=== PATIENT | male | born 1970 | race Caucasian/White ===

== ENCOUNTER 2019-04-21 18:10 | Emergency (ER) | payer BC ==
[2019-04-21] MEDS ORDERED: Acetaminophen/HYDROcodone 325-10 MG Tab PO ONE (18:11)
[2019-04-21] MEDS ORDERED: fentaNYL 100 MCG/2 ML SDV IVPUSH ONE ×2 (20:05→22:17)
[2019-04-21] MEDS ORDERED: Ondansetron 4 MG/2 ML SDV IV ONE (20:05)
[2019-04-21] MEDS ORDERED: Sodium Chloride 0.9% 1,000 ML IV ONE (20:06)
[2019-04-21] MEDS ORDERED: Iopamidol 612 MG/ML 100 ML Bottle IVPUSH ONE (20:18)
--- NOTE | 2019-04-21 20:23 | EDM.PDOC ---
ED HPI GENERAL MEDICAL PROBLEM - General Chief Complaint: Abdominal Pain Stated Complaint: DIATICILITUS? Time Seen by Provider: 04/21/19 20:21 Source of Information: Reports: Patient History Limitations: Reports: No Limitations - History of Present Illness INITIAL COMMENTS - FREE TEXT/NARRATIVE: onset of pain yesterday which was across lower abd, then today LLQ region, no diarrhoea, no N/V. 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 Lower Abdominal Pain Score (Numeric/FACES): 4 - Related Data Allergies Allergy/AdvReac Type Severity Reaction Status Date / Time pantoprazole [From Protonix] Allergy Cannot Verified 04/21/19 18:59 Remember Home Meds: Home Meds Sertraline HCl 50 mg PO DAILY 03/14/15 [History] Past Medical History Gastrointestinal History: Reports: Diverticulosis Musculoskeletal History: Reports: Fracture Psychiatric History: Reports: Other (See Below) Other Psychiatric History: SAD - Past Surgical History HEENT Surgical History: Reports: Tonsillectomy GI Surgical History: Reports: Appendectomy, Cholecystectomy Musculoskeletal Surgical History: Reports: Other (See Below) Social & Family History - Tobacco Use Smoking Status *Q: Current Every Day Smoker Years of Tobacco use: 30 Packs/Tins Daily: 1 - Caffeine Use Caffeine Use: Reports: Coffee, Soda - Recreational Drug Use Recreational Drug Use: No ED ROS GENERAL - Review of Systems Review Of Systems: ROS reveals no pertinent complaints other than HPI. ED EXAM, GI/ABD - Physical Exam Exam: See Below Exam Limited By: No Limitations General Appearance: Alert, WD/WN, Mild Distress, Moderate Distress, Other (pain) . No: Active Emesis Ears: Hearing Grossly Normal Throat/Mouth: Normal Voice, No Airway Compromise Head: Atraumatic Neck: Non-Tender, Full Range of Motion Respiratory/Chest: No Respiratory Distress Cardiovascular: Regular Rate, Rhythm GI/Abdominal Exam: Guarding, Tender, Other (LLQ). No: Distended, Rigid, Rebound Neurological: Alert, Oriented, Normal Cognition, Normal Gait, No Motor/Sensory Deficits Psychiatric: Tearful Skin Exam: Warm, Dry, Normal Color Lymphatic: No Adenopathy Course - Vital Signs Last Recorded V/S: Last Vital Signs Temp 36.9 C 04/21/19 23:39 Pulse 70 04/21/19 22:18 Resp 14 04/21/19 22:18 BP 120/75 04/21/19 22:18 Pulse Ox 95 04/21/19 22:18 - Orders/Labs/Meds Orders: Active Orders 24 hr Category Date Time Status CULTURE BLOOD [BC] Stat Lab 04/21/19 20:00 Received Labs: Laboratory Tests 04/21/19 04/21/19 04/21/19 Range/Units 20:00 20:00 20:00 WBC 14.0 H (5.0-10.0) 10^3/uL RBC 5.02 (4.6-6.2) 10^6/uL Hgb 15.7 D (14.0-18.0) g/dL Hct 46.3 (40.0-54.0) % MCV 92.2 (80-100) fL MCH 31.3 (27.0-34.0) pg MCHC 33.9 (33.0-35.0) g/dL Plt Count 279 (150-450) 10^3/uL Neut % (Auto) 71.3 (42.2-75.2) % Lymph % (Auto) 14.8 L (20.5-50.1) % [place] % (Auto) 12.1 H (2-8) % Eos % (Auto) 1.5 (1.0-3.0) % Baso % (Auto) 0.3 (0.0-1.0) % Sodium 136 (135-145) mmol/L Potassium 4.1 (3.6-5.0) mmol/L Chloride 100 L (101-111) mmol/L Carbon Dioxide 26.0 (21.0-31.0) mmol/L Anion Gap 14.1 BUN 15 (7-18) mg/dL Creatinine 0.9 (0.6-1.3) mg/dL Est Cr Clr Drug Dosing 105.90 mL/min Estimated GFR (MDRD) > 60 BUN/Creatinine Ratio 16.66 Glucose 90 (74-105) mg/dL Lactic Acid 0.8 (0.5-2.2) mmol/L Calcium 9.0 (8.4-10.2) mg/dl Total Bilirubin 1.0 (0.2-1.0) mg/dL AST 16 (10-42) IU/L ALT 30 (10-60) IU/L Alkaline Phosphatase 62 (42-121) IU/L Total Protein 8.1 (6.7-8.2) g/dl Albumin 4.2 (3.2-5.5) g/dl Globulin 3.9 Albumin/Globulin Ratio 1.08 Meds: Medications Discontinued Medications Generic Name Dose Route Start Last Admin Trade Name Ronny PRN Reason Stop Dose Admin Acetaminophen 650 mg 04/21/19 22:17 04/21/19 22:24 Tylenol PO 04/21/19 22:18 650 mg NOW ONE Administration Acetaminophen Confirm 04/21/19 22:26 04/21/19 23:33 Tylenol Administered 04/21/19 22:27 Not Given Dose 325 mg .ROUTE .STK-MED ONE Hydrocodone Bitart/Acetaminophen Confirm 04/21/19 21:31 04/21/19 22:29 Revere 325-10 Mg Administered 04/21/19 21:32 Not Given Dose 2 tab .ROUTE .STK-MED ONE Fentanyl 50 mcg 04/21/19 20:05 04/21/19 20:12 Sublimaze IVPUSH 04/21/19 20:06 50 mcg ONETIME ONE Administration Fentanyl 50 mcg 04/21/19 22:17 04/21/19 22:26 Sublimaze IVPUSH 04/21/19 22:18 50 mcg ONETIME ONE Administration Sodium Chloride 1,000 mls @ 999 mls/hr 04/21/19 20:06 04/21/19 20:11 Normal Saline IV 04/21/19 21:06 999 mls/hr .BOLUS ONE Administration Ciprofloxacin/Dextrose 400 mg/ 200 mls @ 200 mls/hr 04/21/19 21:27 04/21/19 22:28 Premix IV 04/21/19 22:26 200 mls/hr ONETIME ONE Administration Metronidazole 500 mg/ Premix 100 mls @ 100 mls/hr 04/21/19 21:27 04/21/19 21: 35 IV 04/21/19 22:26 100 mls/hr ONETIME ONE Administration Iopamidol 100 ml 04/21/19 20:18 04/21/19 20:49 Isovue-300 (61%) IVPUSH 04/21/19 20:19 99 ml ONETIME ONE Administration Ondansetron HCl 4 mg 04/21/19 20:05 04/21/19 20:12 Zofran IV 04/21/19 20:06 4 mg ONETIME ONE Administration - Re-Assessments/Exams Free Text/Narrative Re-Assessment/Exam: 04/21/19 21:30 results discussed with pt who prefers home but will follow PMD's rec' case discussed with Dr Arita who rec' cipro & flagyl IV with P.O f/u Departure - Departure Time of Disposition: 23:35 Disposition: Home, Self-Care 01 Condition: Good Clinical Impression: Diverticulitis of sigmoid colon - Discharge Information Instructions: Diverticulitis, [id number] Forms: ED Department Discharge Additional Instructions: 1) clear liquid diet next 2 to 4 days 2) follow up with family doctor rx given; cipro 50mmg bid x 1 week flagyl 500mg bid x 1 week vicodin 5/325mg bid prn x 12 - My Orders Last 24 Hours: My Active Orders 04/21/19 20:00 CULTURE BLOOD [BC] Stat - Assessment/Plan Last 24 Hours: My Active Orders 04/21/19 20:00 CULTURE BLOOD [BC] Stat
[2019-04-21 20:32] LABS: ANION GAP 14.1; CHLORIDE,CL 100 mmol/L (101-111); SODIUM,NA 136 mmol/L (135-145)
[2019-04-21] MEDS ORDERED: metroNIDAZOLE/Normal Saline 500 MG in Premix Bag 100 BAG IV ONE (21:27)
[2019-04-21] MEDS ORDERED: Ciprofloxacin in D5W 400 MG in Premix Bag 1 BAG IV ONE ×2 (21:27)
[2019-04-21] MEDS ORDERED: Acetaminophen/HYDROcodone 325-10 MG Tab ONE (21:31)
[2019-04-21] MEDS ORDERED: Acetaminophen 325 MG Tab PO ONE (22:17)
[2019-04-21 22:19] VITALS: BP 120/75
[2019-04-21] MEDS ORDERED: Acetaminophen 325 MG Tab ONE (22:26)
== END 2019-04-21 23:39 | disposition home or self-care (01) ==
LOC: DL.ED 18:10
DX: K57.32 Diverticulitis of large intestine without perforation or abscess without bleeding (principal); F17.210 Nicotine dependence, cigarettes, uncomplicated; Z88.8 Allergy status to other drugs, medicaments and biological substances; Z79.899 Other long term (current) drug therapy
CPT/HCPCS: 36415; 74177; 80053; 83605; 85025; 87040; 96361; 96365; 96367; 96375; 96376; 99284; A4217; A9270; J0744; J2405; J3010; J3490; J7030; Q9967

== ENCOUNTER 2023-03-09 10:02 | Emergency (ER) | payer BC ==
[2023-03-09 10:12] VITALS: BP 127/99; PULSE 74
[2023-03-09] MEDS ORDERED: Sodium Chloride 0.9% 10 ML Syringe FLUSH PRN (10:32)
[2023-03-09] MEDS ORDERED: Ondansetron 4 MG/2 ML SDV IVPUSH ONE (10:32)
[2023-03-09] MEDS ORDERED: HYDROmorphone 1 MG/ML Syringe IVPUSH ONE (10:32)
[2023-03-09] MEDS ORDERED: Sodium Chloride 0.9% 1,000 ML IV ONE (10:32)
[2023-03-09 11:09] LABS: ANION GAP 13.2 mEq/L (7-13); CHLORIDE,CL 104 mmol/L (98-107); SODIUM,NA 140 mmol/L (136-145)
[2023-03-09 11:11] LABS: ESTIMATED GFR 80 mL/min (>=60)
[2023-03-09] MEDS ORDERED: Iopamidol 612 MG/ML 100 ML Bottle IVPUSH ONE (11:34)
== END 2023-03-09 13:52 ==
LOC: DL.ED 10:02
DX: K57.32 Diverticulitis of large intestine without perforation or abscess without bleeding (principal); K76.0 Fatty (change of) liver, not elsewhere classified; F17.210 Nicotine dependence, cigarettes, uncomplicated; Z88.8 Allergy status to other drugs, medicaments and biological substances; Z90.89 Acquired absence of other organs; Z90.49 Acquired absence of other specified parts of digestive tract
CPT/HCPCS: 36415; 74177; 80053; 81001; 82150; 82272; 83605; 83690; 83735; 85025; 85651; 86140; 87086; 96361; 96374; 99283; 99285-25; J1170; J2405; J3490; J7030; Q9967

== ENCOUNTER 2023-03-31 17:52 | Emergency (ER) | payer BC ==
[2023-03-31 18:10] VITALS: BP 144/96; PULSE 92
== END 2023-03-31 18:23 | disposition home or self-care (01) ==
LOC: DL.ED 17:52
DX: I82.621 Acute embolism and thrombosis of deep veins of right upper extremity (principal); Z88.8 Allergy status to other drugs, medicaments and biological substances
CPT/HCPCS: 99283